=== PATIENT | male | born 1955 | race Caucasian/White ===

== ENCOUNTER 2021-05-28 08:42 | Outpatient (CLI) | payer OTHER ==
[~2021-05-28 08:42] MED LIST: AMBIEN CR6.25 MG/BL; AVALIDE 300-12.1 TAB; HYDROCHLOROTH12.5 M1; JANUMET XR 50-1 EAC1; NORVASC5 MG
== END 2021-05-28 08:43 | disposition home or self-care (01) ==
LOC: NUCLEAR 08:42
PROVIDERS: ATTEND Internal Medicine Cardiovascular Disease
DX: I20.1 Angina pectoris with documented spasm (principal)
CPT/HCPCS: 78452; 93017; A9500; J0153